=== PATIENT | male | born 1975 | race Caucasian/White ===

== ENCOUNTER 2022-02-22 21:05 | Emergency (ER) | payer BC ==
[~2022-02-22] VITALS: Ht 162.6 cm; Wt 68.0 kg
[2022-02-22 21:38] VITALS: BP_SYST 121
--- NOTE | 2022-02-22 21:51 | NUR ---
Patient presents to ED from home with c/o intermittent chest wall pain x2 weeks. Patient reports pain 3/10 at this time. Patient denies any PMH. Patient reports pain lasting 2 hours today, usually lasts 10-15mins in last 2 weeks. Patient accompained by . Patient A/Ox4, VSS, ambulatory, resp even and unlabored. Nad noted at this time.
--- NOTE | 2022-02-22 22:16 | NUR ---
Per laboratory clerk, pt LWBS.
== END 2022-02-22 22:16 | disposition left against medical advice (07) ==
LOC: SED 21:05
DX: R07.89 Other chest pain (principal); Z53.21 Procedure and treatment not carried out due to patient leaving prior to being seen by health care provider